=== PATIENT | male | born 1995 | race Caucasian/White ===

== ENCOUNTER 2019-03-01 05:37 | Emergency (ER) | payer OTHER ==
[~2019-03-01] VITALS: Ht 188 cm; Wt 83.9 kg
[2019-03-01] MEDS ORDERED: AMBIEN10 MG PO (05:48)
[2019-03-01] MEDS ORDERED: BENZTROPINE MESY1 MG PO (05:49)
[2019-03-01] MEDS ORDERED: HYDROXYZINE HCL50 MG PO (05:49)
[2019-03-01] MEDS ORDERED: HALOPERIDOL2 MG PO (05:51)
== END 2019-03-01 06:48 | disposition home or self-care (01) ==
LOC: ED 05:37 → EDBD 05:37 → ED 06:48
DX: T63.441A Toxic effect of venom of bees, accidental (unintentional), initial encounter (principal); J20.9 Acute bronchitis, unspecified; F31.9 Bipolar disorder, unspecified; F20.9 Schizophrenia, unspecified; Z88.0 Allergy status to penicillin; Z88.2 Allergy status to sulfonamides; Z91.040 Latex allergy status; Z88.5 Allergy status to narcotic agent; Z79.899 Other long term (current) drug therapy
CPT/HCPCS: 71046; 99285-25

== ENCOUNTER 2019-03-06 20:38 | Emergency (ER) | payer OTHER ==
[~2019-03-06] VITALS: Ht 188 cm; Wt 83.9 kg
--- NOTE | ~2019-03-06 | EKG ---
[facility] [address] [facility] [place], [place] [address] Draft EKG completed, results pending confirmation PATIENT NAME: DOMORADHIKAWILLIS Electrocardiogram DATE OF : 89 PHYSICIAN: PRELIMINARY REPORT #: [id number] REPORT IS CONFIDENTIAL AND NOT TO BE RELEASED WITHOUT AUTHORIZATION
[~2019-03-06 20:38] MED LIST: AMBIEN10 MG PO; BENZTROPINE MESY1 MG PO; HALOPERIDOL2 MG PO; HYDROXYZINE HCL50 MG PO
--- OUTSIDE RECORDS SUMMARY | 2019-03-06 20:40 | XMS ---
PreManage Notification: WILLIS FLORES Security Recreation Assistant Events No recent Security Events currently on file CRITERIA MET - [facility] - 2 Visits in 30 Days CARE PROVIDERS There are no care providers on record at this time. Zach has no Care Guidelines for this patient. Kaley VISIT COUNT (12 MO.) [address] [facility] TOTAL 2 NOTE: Visits indicate total known visits. ED/C VISIT TRACKING (12 MO.) 03/06/2019 20:38 [facility] [place] TYPE: Emergency COMPLAINT: - DIFF BREATHING 03/01/2019 05:[address] [facility] [place] TYPE: Emergency COMPLAINT: - COUGH DIAGNOSES: - Latex allergy status - Other remote computer terminal operator (current) drug therapy - Acute bronchitis, unspecified - Bipolar disorder, unspecified - Allergy status to sulfonamides status - Cough - Schizophrenia, unspecified - Allergy status to narcotic agent status - Allergy status to penicillin - Toxic effect of venom of bees, accidental, init INPATIENT VISIT TRACKING (12 MO.) No inpatient visits to display in this time frame [id number]
[2019-03-06] MEDS ORDERED: ALBUTEROL2.5 MG/3 M INH (22:01)
--- NOTE | 2019-03-07 12:45 | EKG ---
[facility] [address] [facility] [place] [address] Signed Normal sinus rhythm Possible Left atrial enlargement Incomplete right bundle branch block Borderline ECG When compared with ECG of 06-MAR-2019 20:48, (Unconfirmed) No significant change was found Confirmed by ALEX JIMENEZ MD ([id number]) on 03/07/2019 12:45:42 PM Electronically Signed By: ALEX JIMENEZ MD 03/07/19 1245 PATIENT NAME: SANDRAWILLISKylah ROBIN Electrocardiogram DATE OF : [birth year] PHYSICIAN: ALEX JIMENEZ MD REPORT #: [id number] REPORT IS CONFIDENTIAL AND NOT TO BE RELEASED WITHOUT AUTHORIZATION
== END 2019-03-06 22:20 | disposition home or self-care (01) ==
LOC: ED 20:38
DX: J40 Bronchitis, not specified as acute or chronic (principal); Z88.8 Allergy status to other drugs, medicaments and biological substances; Z91.018 Allergy to other foods; Z91.048 Other nonmedicinal substance allergy status
CPT/HCPCS: 93005; 93010; 99283-25

== ENCOUNTER 2019-03-18 20:17 | Emergency (ER) | payer OTHER ==
[~2019-03-18] VITALS: Ht 188 cm; Wt 83.9 kg
[~2019-03-18 20:17] MED LIST changes: +ALBUTEROL2.5 MG/3 M INH
--- OUTSIDE RECORDS SUMMARY | 2019-03-18 20:20 | XMS ---
PreManage Notification: WILLIS FLORES Security Palliative Medicine Physician Events No recent Security Events currently on file CRITERIA MET - [facility] - Has Care Guidelines - [facility] - 2 Visits in 30 Days CARE PROVIDERS There are no care providers on record at this time. Zach has no Care Guidelines for this patient. Care History Medical/Surgical 03/09/2019 [facility] - [facility] RECEIVED CASE MANAGEMENT CONSULT-HELP PATIENT WITH ESTABLISHING CARE WITH A PCP. - [facility] CASE MANAGEMENT REFERRAL MADE - PATIENT HAS [employer] INSURANCE AND NEEDS CLOSE CASE MANAGEMENT FOLLOW UP. E.D. VISIT COUNT (12 MO.) 3 [facility]. TOTAL 3 NOTE: Visits indicate total known visits. ED/UCC VISIT TRACKING (12 MO.) 03/18/2019 20:17 [facility] [place] TYPE: Emergency COMPLAINT: - MEDICAL CLEARANCE 03/06/2019 20:38 [facility] [place] TYPE: Emergency COMPLAINT: - DIFF BREATHING DIAGNOSES: - Allergy status to oth drug/meds/biol subst status - Bronchitis, not specified as acute or chronic - Other nonmedicinal substance allergy status - Allergy to other foods 03/01/2019 05:37 [facility] [place] TYPE: Emergency COMPLAINT: - COUGH DIAGNOSES: - Latex allergy status - Other alf (current) drug therapy - Acute bronchitis, unspecified - Bipolar disorder, unspecified - Allergy status to sulfonamides status - Cough - Schizophrenia, unspecified - Allergy status to narcotic agent status - Allergy status to penicillin - Toxic effect of venom of bees, accidental, init INPATIENT VISIT TRACKING (12 MO.) No inpatient visits to display in this time frame [id number]
[2019-03-18] MEDS ORDERED: VISTARIL50 MG PO (20:47)
[2019-03-18] MEDS ORDERED: AMBIEN10 MG PO (20:49)
[2019-03-19] MEDS ORDERED: HALOPERIDOL10 MG PO (10:17)
== END 2019-03-19 11:11 | disposition home or self-care (01) ==
LOC: ED 20:17
DX: J40 Bronchitis, not specified as acute or chronic (principal); F31.9 Bipolar disorder, unspecified; F90.9 Attention-deficit hyperactivity disorder, unspecified type; F20.9 Schizophrenia, unspecified; Z88.0 Allergy status to penicillin; Z88.2 Allergy status to sulfonamides; Z91.018 Allergy to other foods; Z91.048 Other nonmedicinal substance allergy status; Z88.5 Allergy status to narcotic agent; Z88.8 Allergy status to other drugs, medicaments and biological substances
CPT/HCPCS: 36415; 80053; 80176; 81001; 84443; 85025; 99285; G0480

== ENCOUNTER 2019-07-29 07:23 | Emergency (ER) | payer OTHER ==
[~2019-07-29] VITALS: Ht 188 cm; Wt 83.9 kg
[~2019-07-29 07:23] MED LIST changes: +HALOPERIDOL10 MG PO; +VISTARIL50 MG PO
--- OUTSIDE RECORDS SUMMARY | 2019-07-29 07:26 | XMS ---
PreManage Notification: WILLIS FLORES Security Unemployment Insurance Director Events No recent Security Events currently on file CRITERIA MET - PDMP CARE PROVIDERS There are no care providers on record at this time. Zach has no Care Guidelines for this patient. Care History Medical/Surgical 04/13/2019 [facility] - PER UPDATE FROM [facility] CASE MANAGEMENT: - PATIENT NO SHOWED TO ESTABLISHING CARE APT WITH [facility] ON . 03/20/2019 [facility] - [facility] REFERRAL MADE-FOR EXTENSIVE CASE MANAGEMENT FOLLOW UP WITH PATIENT. 03/09/2019 [facility] - [facility] RECEIVED CASE MANAGEMENT CONSULT-HELP PATIENT WITH ESTABLISHING CARE WITH A PCP. - [facility] CASE MANAGEMENT REFERRAL MADE - PATIENT HAS [employer] INSURANCE AND NEEDS CLOSE CASE MANAGEMENT FOLLOW UP. E.D. VISIT COUNT (12 MO.) 4 [facility]. TOTAL 4 NOTE: Visits indicate total known visits. ED/UCC VISIT TRACKING (12 MO.) 07/29/2019 07:23 [facility] [place] TYPE: Emergency COMPLAINT: - COLD SYMPTOMS 03/18/2019 20:17 [facility] [place] TYPE: Emergency COMPLAINT: - MEDICAL CLEARANCE DIAGNOSES: - Cough - Attention-deficit hyperactivity disorder, unspecified type - Allergy status to sulfonamides status - Bronchitis, not specified as acute or chronic - Allergy status to penicillin - Allergy to other foods - Schizophrenia, unspecified - Suicidal ideations - Bipolar disorder, unspecified - Allergy status to oth drug/meds/biol subst status - Other nonmedicinal substance allergy status - Allergy status to narcotic agent status 03/06/2019 20:38 [facility] [place] TYPE: Emergency COMPLAINT: - DIFF BREATHING DIAGNOSES: - Allergy status to oth drug/meds/biol subst status - Bronchitis, not specified as acute or chronic - Other nonmedicinal substance allergy status - Allergy to other foods 03/01/2019 05:[address] [facility] [place] TYPE: Emergency COMPLAINT: - COUGH DIAGNOSES: - Latex allergy status - Other jail (current) drug therapy - Acute bronchitis, unspecified - Bipolar disorder, unspecified - Allergy status to sulfonamides status - Cough - Schizophrenia, unspecified - Allergy status to narcotic agent status - Allergy status to penicillin - Toxic effect of venom of bees, accidental, init INPATIENT VISIT TRACKING (12 MO.) No inpatient visits to display in this time frame [id number]
[2019-07-29] MEDS ORDERED: BENZTROPINE MESY1 MG PO ×2 (07:42→08:43)
[2019-07-29] MEDS ORDERED: HALOPERIDOL10 MG PO ×2 (07:43→08:43)
[2019-07-29] MEDS ORDERED: AMBIEN10 MG PO (07:43)
[2019-07-29] MEDS ORDERED: HYDROXYZINE PAM50 MG PO (07:43)
[2019-07-29] MEDS ORDERED: VISTARIL25 MG PO (08:43)
[2019-07-29] MEDS ORDERED: ALBUTEROL2.5 MG/3 M INH (08:43)
== END 2019-07-29 09:00 | disposition home or self-care (01) ==
LOC: ED 07:23
DX: R19.7 Diarrhea, unspecified (principal); R11.2 Nausea with vomiting, unspecified; F31.9 Bipolar disorder, unspecified; F20.9 Schizophrenia, unspecified; Z88.6 Allergy status to analgesic agent; Z88.0 Allergy status to penicillin; Z88.2 Allergy status to sulfonamides; Z91.048 Other nonmedicinal substance allergy status; Z79.899 Other long term (current) drug therapy
CPT/HCPCS: 99283

== ENCOUNTER 2019-08-03 19:41 | Emergency (ER) | payer OTHER ==
[~2019-08-03] VITALS: Ht 188 cm; Wt 83.9 kg
[~2019-08-03 19:41] MED LIST changes: +HYDROXYZINE PAM50 MG PO; +VISTARIL25 MG PO
--- OUTSIDE RECORDS SUMMARY | 2019-08-03 19:44 | XMS ---
PreManage Notification: WILLIS FLORES Security Weigher Production Events No recent Security Events currently on file CRITERIA MET - [facility] - Has Care Guidelines - PDMP - [facility] - 2 Visits in 30 Days CARE PROVIDERS [place] ZAMUDIO Physician Resident Medical Officer 07/29/2019-Current PHONE: [phone] Zach has no Care Guidelines for this patient. Care History Medical/Surgical 04/13/2019 [facility] - PATIENT NO SHOWED TO ESTABLISHING CARE APT WITH [facility] ON . 03/20/2019 [facility] - [facility] REFERRAL MADE-FOR EXTENSIVE CASE MANAGEMENT FOLLOW UP WITH PATIENT. 03/09/2019 [facility] - [facility] RECEIVED CASE MANAGEMENT CONSULT-HELP PATIENT WITH ESTABLISHING CARE WITH A PCP. - [facility] CASE MANAGEMENT REFERRAL MADE - PATIENT HAS [employer] INSURANCE AND NEEDS CLOSE CASE MANAGEMENT FOLLOW UP. E.D. VISIT COUNT (12 MO.) 5 [facility] NOTE: Visits indicate total known visits. ED/UCC VISIT TRACKING (12 MO.) 08/03/2019 19:43 [facility] [place] TYPE: Emergency COMPLAINT: - MEDICAL CLEARANCE 07/29/2019 07:23 [facility] [place] TYPE: Emergency COMPLAINT: - COLD SYMPTOMS DIAGNOSES: - Other half-way (current) drug therapy - Other nonmedicinal substance allergy status - Bipolar disorder, unspecified - Nausea with vomiting, unspecified - Diarrhea, unspecified - Allergy status to analgesic agent status - Allergy status to sulfonamides status - Schizophrenia, unspecified - Allergy status to penicillin 03/18/2019 20:17 [facility] [place] TYPE: Emergency [...] Allergy to other foods 03/01/2019 05:37 [facility] [place] TYPE: Emergency COMPLAINT: - COUGH DIAGNOSES: - Latex allergy status - Other wrapper sorter (current) drug therapy - Acute bronchitis, unspecified - Bipolar disorder, unspecified - Allergy status to sulfonamides status - Cough - Schizophrenia, unspecified - Allergy status to narcotic agent status - Allergy status to penicillin - Toxic effect of venom of bees, accidental, init INPATIENT VISIT TRACKING (12 MO.) No inpatient visits to display in this time frame [id number]
== END 2019-08-04 17:30 | disposition short-term general hospital (02) ==
LOC: ED 19:41
DX: Z00.8 Encounter for other general examination (principal); F31.9 Bipolar disorder, unspecified; F90.9 Attention-deficit hyperactivity disorder, unspecified type; F43.10 Post-traumatic stress disorder, unspecified; F20.9 Schizophrenia, unspecified; Z91.018 Allergy to other foods; Z88.0 Allergy status to penicillin; Z88.2 Allergy status to sulfonamides; Z91.048 Other nonmedicinal substance allergy status; Z88.5 Allergy status to narcotic agent; Z88.1 Allergy status to other antibiotic agents; Z79.899 Other long term (current) drug therapy
CPT/HCPCS: 80053; 80176; 81001; 84443; 85025; 99284; G0480

== ENCOUNTER 2019-08-16 17:46 | Emergency (ER) | payer OTHER ==
[~2019-08-16] VITALS: Ht 188 cm; Wt 83.9 kg
--- OUTSIDE RECORDS SUMMARY | 2019-08-16 17:50 | XMS ---
PreManage Notification: WILLIS FLORES Security Technical Data Analyst Events No recent Security Events currently on file CRITERIA MET - 6 ED Visits in 6 Months - [facility] - Has Care Guidelines - PDMP - [facility] - 2 Visits in 30 Days CARE PROVIDERS [place] ZAMUDIO Physician 07/29/2019-Current PHONE: [phone] Zach has no Care Guidelines for this patient. Care History Medical/Surgical 04/13/2019 [facility] - PER UPDATE FROM [facility] CASE MANAGEMENT: - PATIENT NO SHOWED TO ESTABLISHING CARE APT WITH [facility] ON . 03/20/2019 [facility] - [facility] REFERRAL MADE-FOR EXTENSIVE CASE MANAGEMENT FOLLOW UP WITH PATIENT. 03/09/2019 [facility] - [facility] RECEIVED CASE MANAGEMENT CONSULT-HELP PATIENT WITH ESTABLISHING CARE WITH A PCP. - [facility]FERR[facility]ADE - PATIENT HAS [employer] INSURANCE AND NEEDS CLOSE CASE MANAGEMENT FOLLOW UP. E.D. VISIT COUNT (12 MO.) [address] [facility] TOTAL 6 NOTE: Visits indicate total known visits. ED/UCC VISIT TRACKING (12 MO.) 08/16/2019 17:47 [facility] [place] TYPE: Emergency COMPLAINT: - MEDICAL CLEARANCE 08/03/2019 19:43 [facility] [place] TYPE: Emergency COMPLAINT: - MEDICAL CLEARANCE DIAGNOSES: - Allergy status to penicillin - Allergy status to other antibiotic agents status - Other truck terminal manager (current) drug therapy - Other nonmedicinal substance allergy status - Bipolar disorder, unspecified - Allergy to other foods - Post-traumatic stress disorder, unspecified - Allergy status to sulfonamides status - Encounter for other general examination - Allergy status to narcotic agent status - Attention-deficit hyperactivity disorder, unspecified type - Schizophrenia, unspecified 07/29/2019 07:23 [facility] [place] TYPE: Emergency COMPLAINT: - COLD SYMPTOMS DIAGNOSES: - Other assisted (current) drug therapy - Other nonmedicinal substance [...] Bipolar disorder, unspecified - Allergy status to other drugs, medicaments and biological sub - Other nonmedicinal substance allergy status - Allergy status to narcotic agent status 03/06/2019 20:38 [facility] [place] TYPE: Emergency COMPLAINT: - DIFF BREATHING DIAGNOSES: - Allergy status to other drugs, medicaments and biological sub - Bronchitis, not specified as acute or chronic - Other nonmedicinal substance allergy status - Allergy to other foods 03/01/2019 05:[address] [facility] [place] TYPE: Emergency COMPLAINT: - COUGH DIAGNOSES: - Latex allergy status - Other truck terminal manager (current) drug therapy - Acute bronchitis, unspecified - Bipolar disorder, unspecified - Allergy status to sulfonamides status - Cough - Schizophrenia, unspecified - Allergy status to narcotic agent status - Allergy status to penicillin - Toxic effect of venom of bees, accidental (unintentional), in INPATIENT VISIT TRACKING (12 MO.) No inpatient visits to display in this time frame [id number]
[2019-08-16] MEDS ORDERED: LORAZEPAM0.5 MG PO (18:22)
== END 2019-08-16 18:51 | disposition home or self-care (01) ==
LOC: ED 17:46
DX: F90.9 Attention-deficit hyperactivity disorder, unspecified type (principal); F20.9 Schizophrenia, unspecified; Z88.0 Allergy status to penicillin; Z88.2 Allergy status to sulfonamides; Z88.5 Allergy status to narcotic agent; Z79.899 Other long term (current) drug therapy
CPT/HCPCS: 81001; 99283

== ENCOUNTER 2020-08-29 12:20 | Emergency (ER) | payer OTHER ==
[~2020-08-29] VITALS: Ht 188 cm; Wt 83.9 kg
[~2020-08-29 12:20] MED LIST changes: +LORAZEPAM0.5 MG PO
--- OUTSIDE RECORDS SUMMARY | 2020-08-29 12:26 | XMS ---
PreManage Notification: WILLIS FLORES Security Web Content Coordinator Events No recent Security Events currently on file CRITERIA MET - [facility] - Has Care Guidelines CARE PROVIDERS [place] ZAMUDIO Physician Negotiator Sales 07/29/2019-Current PHONE: [phone] Guidelines Source: [employer] [facility] Guidelines Date: 09/29/2019 Care Coordination: Member is currently enrolled in Mental Health Services through [employer]. If services are needed through [employer] please call: Leana [phone] [place]\\[facility]; [phone] Crisis [phone] Care History Medical/Surgical 04/13/2019 [facility] - PER UPDATE FROM [facility] CASE MANAGEMENT: - PATIENT NO SHOWED TO ESTABLISHING CARE APT WITH [facility] ON . 03/20/2019 [facility] - [facility] REFERRAL MADE-FOR EXTENSIVE CASE MANAGEMENT FOLLOW UP WITH PATIENT. 03/09/2019 [facility] - [facility] RECEIVED CASE MANAGEMENT CONSULT-HELP PATIENT WITH ESTABLISHING CARE WITH A PCP. - [facility] CASE MANAGEMENT REFERRAL MADE - PATIENT HAS [employer] INSURANCE AND NEEDS CLOSE CASE MANAGEMENT FOLLOW UP. E.D. VISIT COUNT (12 MO.) 1 [facility] TOTAL 1 NOTE: Visits indicate total known visits. ED/UCC VISIT TRACKING (12 MO.) 08/29/2020 12:21 [facility] [place] TYPE: Emergency COMPLAINT: - MEDICATION ALLERGIC REACTION INPATIENT VISIT TRACKING (12 MO.) No inpatient visits to display in this time frame [id number]
== END 2020-08-29 13:48 | disposition home or self-care (01) ==
LOC: ED 12:20
DX: T40.2X1A Poisoning by other opioids, accidental (unintentional), initial encounter (principal); S80.212A Abrasion, left knee, initial encounter; S60.410A Abrasion of right index finger, initial encounter; X58.XXXA Exposure to other specified factors, initial encounter; Z88.8 Allergy status to other drugs, medicaments and biological substances; Z88.0 Allergy status to penicillin; Z88.2 Allergy status to sulfonamides; Z91.048 Other nonmedicinal substance allergy status; Z88.5 Allergy status to narcotic agent; Z88.1 Allergy status to other antibiotic agents; Z91.018 Allergy to other foods; Z79.899 Other long term (current) drug therapy
CPT/HCPCS: 99283; Q0163